=== PATIENT | female | born 1950 | race Caucasian/White ===

== ENCOUNTER → 2019-09-01 14:18 | Outpatient (CLI) | payer MEDICARE, SELFPAY ==
--- NOTE | ~2019-09-01 | XR_ITS ---
XR foot LT min 3V DATE: 09/01/2019 14:52 INDICATION: Injury one month ago, persistent pain left foot TECHNIQUE: 4 views COMPARISON: 08/01/2019 left foot FINDINGS: There is osteoarthritis at the first metatarsophalangeal and multiple interphalangeal joint s. Mild R calcaneal enthesopathy. No fracture or dislocation, periosteal reaction or bone destruction. No erosive change. IMPRESSION: Plantar calcaneal enthesopathy Polyarticular osteoarthritis Reviewed, dictated and finalized at location B. THERAPIST
== END ==
PROVIDERS: PCP Physician Assistant; Visit Provider Physician Assistant
DX: M71.22 Synovial cyst of popliteal space [Baker], left knee (principal); M19.072 Primary osteoarthritis, left ankle and foot
CPT/HCPCS: 73630

== ENCOUNTER → 2019-09-06 07:16 | Outpatient (CLI) | payer MEDICARE, SELFPAY ==
--- NOTE | ~2019-09-06 | MR_ITS ---
EXAMINATION: MR foot LT wo con DATE: 09/06/2019 08:09 INDICATION: Pain at the dorsal left forefoot. TECHNIQUE: Magnetic resonance imaging (MRI) of the left fore/mid foot was performed without intraveno us contrast. Sequences included sagittal T1-weighted FSE, sagittal fluid sensitive FSE STIR, coronal PD-weighted FS FSE, coronal T1-weighted FSE, axial PD-weighted FS FSE, and axial PD-weighted FSE. COMPARISON: Left foot radiographs dated 09/01/2019 FINDINGS: Prominent marrow edema throughout the third metatarsal surrounding a nondisplaced transverse fracture across the proximal metadiaphyseal region of the left second metatarsal. There is periosteal reactio n along the medial side of the diaphysis and small amount of callus formation at the dorsal and later al margins of the fracture. Alignment remains essentially anatomic. No other fractures identified. Mi ld to moderate osteoarthritis at the first metatarsophalangeal joint with mild subarticular edema yash primo along the articulation with the lateral sesamoid. Additional mild osteoarthritis at some of th e interphalangeal joints as well as the tarsal metatarsal joints with additional mild subarticular ed berenice at the third, fourth and fifth tarsal metatarsal joints. Flexor and extensor tendons are normal. Lisfranc ligament and collateral ligament complex at the metatarsophalangeal and interphalangeal join ts are normal. There is edema in the soft tissues surrounding the second metatarsal. The intrinsic mu sculature is otherwise unremarkable. No joint effusions. IMPRESSION: 1. Healing nondisplaced transverse fracture at the proximal metadiaphysis of the second metatarsal. Reviewed, dictated and finalized at location A. K FITTER IMPRESSION: 1. Healing nondisplaced transverse fracture at the proximal metadiaphysis of th e second metatarsal.
== END ==
PROVIDERS: PCP Family Medicine; Visit Provider Family Medicine
DX: S92.325D Nondisplaced fracture of second metatarsal bone, left foot, subsequent encounter for fracture with routine healing (principal); X58.XXXD Exposure to other specified factors, subsequent encounter
CPT/HCPCS: 73718

== ENCOUNTER 2020-04-21 01:08 | Outpatient (CLI) | payer MEDICARE, SELFPAY ==
[2020-04-21 17:48] LABS: SARS-CoV-2 RNA PCR Negative
== END 2020-04-21 01:09 | disposition home or self-care (01) ==
LOC: ANHCOVIDDT 01:08
PROVIDERS: PCP Family Medicine; Visit Provider Internal Medicine Gastroenterology
DX: Z01.812 Encounter for preprocedural laboratory examination (principal); Z20.828 Contact with and (suspected) exposure to other viral communicable diseases
CPT/HCPCS: 87635; C9803; U0003

== ENCOUNTER 2020-04-24 02:14 | Day surgery (SDC) | payer MEDICARE, SELFPAY ==
[2020-04-18 12:19] VITALS: BMI 26.5
[2020-04-24 11:20] VITALS: BP 138/82; PULSE 78; RESP 18; TEMP 37; O2SAT 99; BMI 26.9
[2020-04-24] MEDS: LACTATED RINGERS 1,000 ML 150 ML IV CONT (11:33)
--- NOTE | 2020-04-24 12:07 | WPDHPUPDATE1 ---
History and Physical Update Update Date/Time: 04/24/20 12:07 History and Physical has been reviewed, including an updated exam of the patient. There are NO changes in the patient's condition. Risks, benefits, and alternatives have been discussed and questions answered. Patient agrees to proceed with procedure.
[2020-04-24 12:27] VITALS: BP 109/61; PULSE 72; RESP 16; O2SAT 100
[2020-04-24 12:37] VITALS: BP 136/79; PULSE 67; RESP 20; O2SAT 100
[2020-04-24 12:47] VITALS: BP 151/82; PULSE 67; RESP 20; O2SAT 100
== END 2020-04-24 13:05 | disposition home or self-care (01) ==
PROVIDERS: PCP Family Medicine; Visit Provider Internal Medicine Gastroenterology
PROC: 0DJ08ZZ Inspection of Upper Intestinal Tract, Via Natural or Artificial Opening Endoscopic (ICD-10-PCS; CPT 43235; principal; 2020-04-24 12:15)
DX: K52.9 Noninfective gastroenteritis and colitis, unspecified (principal); K29.50 Unspecified chronic gastritis without bleeding; K51.50 Left sided colitis without complications; K21.9 Gastro-esophageal reflux disease without esophagitis; K22.2 Esophageal obstruction; K21.0 Gastro-esophageal reflux disease with esophagitis; K44.9 Diaphragmatic hernia without obstruction or gangrene
CPT/HCPCS: 43239; 43249; 88305; C1726; J2704; J7120

== ENCOUNTER → 2020-07-30 09:00 | Outpatient (CLI) | payer MEDICARE, SELFPAY ==
--- NOTE | ~2020-07-30 | MR_ITS ---
EXAMINATION: MR brain/brain stem wo con DATE: 07/30/2020 09:38 INDICATION: Unspecified dementia without behavioral disturbance. Left-sided headache. TECHNIQUE: Magnetic resonance imaging (MRI) of the brain and brainstem was performed without intraven ous contrast. Sequences included sagittal and axial T1-weighted FSE, axial diffusion-weighted FS EPI, axial T2*-weighted GRE, axial T2-weighted FLAIR Propeller, and axial T2-weighted Propeller. Apparent diffusion coefficient (ADC) maps were created. COMPARISON: None. FINDINGS: There is no intracranial hemorrhage, acute infarction, or abnormal intracranial mass lesion . There are scattered areas of nonspecific increased T2-weighted signal intensity in the cerebral whi te matter and jorge, which is within normal limits for the patient's age. The ventricles are normal in size. The paranasal sinuses are clear. The orbits are normal. The mastoid air cells are normal. IMPRESSION: 1. Normal aging brain. Reviewed, dictated and finalized at location A. T COMBINING OPERATOR IMPRESSION: 1. Normal aging brain.
--- NOTE | ~2020-07-30 | XR_ITS ---
EXAMINATION: XR chest 2V 07/30/2020 09:58 INDICATION: Dementia. Dyspnea. PROCEDURE: 2 view chest COMPARISON: 10/15/2018 FINDINGS: The lungs are clear. The cardiomediastinal silhouette is within normal limits. There are no pleural effusions. There is no pneumothorax suspected. IMPRESSION: 1: NO ACUTE CARDIOPULMONARY DISEASE. Reviewed, dictated and finalized at location A. COPY EDITOR
== END ==
PROVIDERS: PCP Family Medicine; Visit Provider Physician Assistant Medical
DX: F03.90 Unspecified dementia, unspecified severity, without behavioral disturbance, psychotic disturbance, mood disturbance, and anxiety (principal)
CPT/HCPCS: 70551; 71046

== ENCOUNTER → 2020-08-14 14:52 | Outpatient (CLI) | payer MEDICARE, SELFPAY ==
--- NOTE | ~2020-08-14 | MM_ITS ---
EXAMINATION: MM screening kalen BI w ausncion HISTORY: Screening mammogram TECHNIQUE: Craniocaudal and mediolateral oblique 3-D tomosynthesis images were obtained and synthetic 2-D images were generated. CAD analysis was submitted and interpreted. COMPARISON: 12/10/2018, 08/20/2017, 06/10/2016 bilateral digital mammogram examinations BREAST PARENCHYMAL COMPOSITION: There are scattered areas of fibroglandular density. FINDINGS: Stable mild fibroglandular asymmetry and small stable circumscribed low-density opacities o f the breast. Benign occasional bilateral calcifications are noted There is no evidence of suspicious mass, calcification, or architectural distortion to suggest malignancy in either breast. There has b een no suspicious interval change. IMPRESSION: 1. No mammographic evidence of malignancy. 2. Recommend routine screening mammography in one year. BI-RADS Category 2: Benign finding(s). Reviewed, dictated and finalized at location A. AND BEVERAGE ASSISTANT
== END ==
PROVIDERS: PCP Family Medicine; Visit Provider Physician Assistant Medical
DX: Z12.31 Encounter for screening mammogram for malignant neoplasm of breast (principal)
CPT/HCPCS: 77063; 77067

== ENCOUNTER → 2020-11-03 01:03 | Outpatient (CLI) | payer MEDICARE, SELFPAY ==
[2020-11-03 18:52] LABS: SARS-CoV-2 RNA PCR Negative
== END ==
PROVIDERS: PCP Family Medicine; Visit Provider Internal Medicine Gastroenterology
DX: Z01.812 Encounter for preprocedural laboratory examination (principal); Z20.822 Contact with and (suspected) exposure to COVID-19
CPT/HCPCS: C9803; U0003; U0005

== ENCOUNTER 2020-11-06 01:32 | Day surgery (SDC) | payer MEDICARE, SELFPAY ==
[2020-10-31 10:39] VITALS: BMI 25.7
[2020-11-06 07:51] VITALS: BP 127/69; PULSE 68; RESP 18; TEMP 36.4; O2SAT 99; BMI 26.3
[2020-11-06] MEDS: LACTATED RINGERS 1,000 ML 150 ML IV CONT (07:59)
--- NOTE | 2020-11-06 08:33 | WPDANESEPPF ---
Anes - Initial Pre Proc Eval Procedure: Operation Date: 11/06/20 09:00 Proposed Procedures p Esophagogastroduodenoscopy - David Hankins MD Date/Time: 11/06/20 08:33 Surgeon: David Hankins MD Pre Op Diagnosis: Esophagitis Patient Data Age: 70 Gender: F Height: 5 ft 3 in Weight: 67.5 kg Last Vital Signs Temp 97.6 F 11/06/20 07:51 Pulse 68 11/06/20 07:51 Resp 18 11/06/20 07:51 BP 127/69 11/06/20 07:51 Pulse Ox 99 11/06/20 07:51 Allergies Allergy/AdvReac Type Severity Reaction Status Date / Time sulfadiazine Allergy Unknown Skin Verified 11/06/20 07:50 Reaction Home Medications Medication Instructions Recorded Confirmed Type albuterol sulfate 90 mcg/actuation 1 inhalation INHALATION Q4H PRN 06/28/19 10/31/20 History aerosol inhaler fluticasone furoate 200 1 inhalation INHALATION Q24H #60 09/28/19 10/31/20 Rx mcg-vilanterol 25 mcg/dose each inhalation powder levothyroxine 75 mcg tablet 75 mcg PO DAILY #90 tablet 02/14/20 10/31/20 Rx azathioprine 50 mg tablet 25 mg PO DAILY #90 tablet 08/07/20 10/31/20 Rx atorvastatin 10 mg PO HS 10/31/20 10/31/20 History calcium carbonate-vitamin D3 2 tablet PO DAILY 10/31/20 10/31/20 History [Calcium 500 + D (D3)] esomeprazole magnesium 20 mg PO DAILY 10/31/20 10/31/20 History fluoxetine 10 mg PO DAILY 10/31/20 10/31/20 History rmmklbpcqrnn-Iz-dtwa-minerals 1 tablet PO DAILY 10/31/20 10/31/20 History [Multiple Vitamin, Womens] Patient hx anesthesia problems: none Family hx anesthesia problems: none PMFSH Past Medical History Medical History Abnormal findings on esophagogastroduodenoscopy (EGD) 04.24.20 esophageal ring/ dilated Acute asthmatic bronchitis Bronchospasm Foot fracture, left GERD (gastroesophageal reflux disease) egd 9.29.20 : dx: esophageal ring/ dilated Grief reaction with prolonged bereavement Left sided colitis Mammogram normal Nicotine dependence, unspecified, in remission Patellofemoral arthralgia of both knees Scoliosis Ulcerative colitis, unspecified, without complications Verrucous keratosis Surgical History Surgical History H/O: hysterectomy History of colonoscopy History of suburethral sling procedure (~2009) History of tubal ligation (~1976) Family History Family History Mother Hypertension Heart disease Father Family history of cardiovascular disease Heart disease Other Breast cancer Lung cancer Other Family history of malignant neoplasm of breast Family history of ulcerative colitis Social History Social History Smoking packs per day: 0.5 Smoking cigarettes per day: 10.0 Years smoked: 15 Smoking pack-years: 7.50 Smoking status: Former smoker Tobacco type: cigarettes Alcohol intake: current Substance use: never Substance use type: does not use Living arrangements: alone Gender identity (if verbalized by the patient): Female Spiritual care concerns: No Anes - Eval Final PreProcedure Day of Procedure 11/06/20 08:33 Patient weight: normal Heart: regular rate and rhythm Airway: Mallampati scale class II Neurological: alert and oriented Last oral intake: >/= 8 hours ASA classification: III Emergent: no Anesthetic plan: proceed Anesthesia type and monitoring: general GIVS and standard monitoring Informed Consent: The patient's anesthetic plan and its attendant risks and benefits were discussed with the patient/family/POA. Questions were solicited and answers provided to the satisfaction of the patient/family/POA.
--- NOTE | 2020-11-06 08:50 | PM.HPGS ---
History of Present Illness History of Present Illness Consent: Risks, benefits, and alternatives have been discussed and questions answered. Patient agrees to proceed with procedure. Chief complaint: Esophagitis Narrative: Susan Tobias is a 70 year old female GERD with esophagitis but better after keeping using nexium and stop nsaid's Review of Systems Constitutional: Constitutional: Denies headache(s) and Denies weakness Eyes: Eyes: Denies blurry vision ENT: Reports Normal hearing present, Denies headache(s) and Denies neck pain Cardiovascular: Cardiovascular: Denies chest pain and Denies dyspnea Respiratory: Respiratory: Denies dyspnea Gastrointestinal: Gastrointestinal: Reports no additional gastrointestinal complaints Genitourinary: Genitourinary: Denies dysuria Musculoskeletal: Musculoskeletal: Denies neck pain Integumentary/Breasts: Skin/Breast: Denies dry skin Neurologic: Reports Normal hearing present, Denies headache(s) and Denies weakness Psychiatric: Psychiatric: Denies anxiety Endocrine: Endocrine: Denies change in body appearance Hematologic/Lymphatic: Hematologic/Lymphatic: Denies easy bleeding Allergic/Immunologic: Allergic/Immunologic: Denies urticaria PMFSH Past Medical History Medical History Abnormal findings on esophagogastroduodenoscopy (EGD) 04.24.20 esophageal ring/ dilated Acute asthmatic bronchitis Bronchospasm Foot fracture, left GERD (gastroesophageal reflux disease) egd 04.24.20 : dx: esophageal ring/ dilated Grief reaction with prolonged bereavement Left sided colitis Mammogram normal Nicotine dependence, unspecified, in remission Patellofemoral arthralgia of both knees Scoliosis Ulcerative colitis, unspecified, without complications Verrucous keratosis Surgical History Surgical History H/O: hysterectomy History of colonoscopy History of suburethral sling procedure (~2009) History of tubal ligation (~1976) Family History Family History Mother Hypertension Heart disease Father Family history of cardiovascular disease Heart disease Other Breast cancer Lung cancer Other Family history of malignant neoplasm of breast Family history of ulcerative colitis Social History Social History Smoking packs per day: 0.5 Smoking cigarettes per day: 10.0 Years smoked: 15 Smoking pack-years: 7.50 Smoking status: Former smoker Tobacco type: cigarettes Alcohol intake: current Substance use: never Substance use type: does not use Living arrangements: alone Gender identity (if verbalized by the patient): Female Spiritual care concerns: No Meds Home Medications and Allergies Home Medications Medication Instructions Recorded Confirmed Type albuterol sulfate 90 mcg/actuation 1 inhalation INHALATION Q4H PRN 06/28/19 10/31/20 History aerosol inhaler fluticasone furoate 200 1 inhalation INHALATION Q24H #60 09/28/19 10/31/20 Rx mcg-vilanterol 25 mcg/dose each inhalation powder levothyroxine 75 mcg tablet 75 mcg PO DAILY #90 tablet 02/14/20 10/31/20 Rx azathioprine 50 mg tablet 25 mg PO DAILY #90 tablet 08/07/20 10/31/20 Rx atorvastatin 10 mg PO HS 10/31/20 10/31/20 History calcium carbonate-vitamin D3 2 tablet PO DAILY 10/31/20 10/31/20 History [Calcium 500 + D (D3)] esomeprazole magnesium 20 mg PO DAILY 10/31/20 10/31/20 History fluoxetine 10 mg PO DAILY 10/31/20 10/31/20 History tgnmspypnlwr-Iq-rjaq-minerals 1 tablet PO DAILY 10/31/20 10/31/20 History [Multiple Vitamin, Womens] Allergies Allergy/AdvReac Type Severity Reaction Status Date / Time sulfadiazine Allergy Unknown Skin Verified 11/06/20 07:50 Reaction Vital Signs Vital Signs - 24 hr 11/06/20 07:51 Temperature 9
[2020-11-06] MEDS: BENZOCAINE (*SP) 60 ML SPRAY CAN (HURRICAINE) 1 SPRAY MUCOUS MEM (08:55)
[2020-11-06 09:03] VITALS: BP 116/64; PULSE 73; RESP 20; O2SAT 97
[2020-11-06 09:13] VITALS: BP 114/67; PULSE 73; RESP 20; O2SAT 99
[2020-11-06 09:23] VITALS: BP 119/70; PULSE 69; RESP 20; O2SAT 100
== END 2020-11-06 09:45 | disposition home or self-care (01) ==
PROVIDERS: PCP Family Medicine; Visit Provider Internal Medicine Gastroenterology
PROC: 0DJ08ZZ Inspection of Upper Intestinal Tract, Via Natural or Artificial Opening Endoscopic (ICD-10-PCS; CPT 43235; principal; 2020-11-06 09:00)
DX: K21.9 Gastro-esophageal reflux disease without esophagitis (principal); K44.9 Diaphragmatic hernia without obstruction or gangrene; J45.909 Unspecified asthma, uncomplicated; Z79.51 Long term (current) use of inhaled steroids; Z87.891 Personal history of nicotine dependence
CPT/HCPCS: 43235; C9803; J2704; J7120; U0003; U0005

== ENCOUNTER → 2020-11-19 15:59 | Outpatient (REF) | payer MEDICARE, SELFPAY | LOC: ANHLAB 15:59 | PROVIDERS: PCP Family Medicine; Visit Provider Nurse Practitioner | DX: C44.319 Basal cell carcinoma of skin of other parts of face (principal) | CPT/HCPCS: 88305; 88342 ==

== ENCOUNTER → 2021-01-07 09:35 | Outpatient (REF) | payer MEDICARE, SELFPAY | LOC: ANHLAB 09:35 | PROVIDERS: PCP Family Medicine; Visit Provider Nurse Practitioner | DX: C44.319 Basal cell carcinoma of skin of other parts of face (principal) | CPT/HCPCS: 88305; 88331 ==

== ENCOUNTER 2021-01-18 16:35 | Outpatient (CLI) | payer MEDICARE, SELFPAY ==
[2021-01-18 17:16] LABS: Hematocrit 39.5 % (37.0-47.0); Hemoglobin 12.8 g/dL (12.0-15.0); Mean Corpuscular HGB Conc 32.4 g/dl (32-36); Mean Corpuscular Hemoglobin 31.1 pg (26-34); Mean Corpuscular Volume 95.9 fl (80-100); Mean Platelet Volume 9.1 fl (7.4-10.4); Platelet Count Result 243 k/mm3 (150-375); Red Blood Count 4.12 M/mm3 (4.2-5.4); Red Cell Distribution Width 14.6 % (11.5-14.5); White Blood Count 7.5 K/mm3 (4.5-10.0)
[2021-01-18 17:48] LABS: Erythrocyte Sedimentation Rate 19 mm/hr (0-20)
[2021-01-18 19:03] LABS: Alanine Aminotransferase 11 U/L (4-35); Albumin Level 4.3 g/dL (3.5-5.1); Alkaline Phosphatase 65 U/L (38-126); Anion Gap 9 mmol/L (8-16); Aspartate Amino Transferase 31 U/L (14-36); Bilirubin,Total 0.4 mg/dL (0.2-1.3); Blood Urea Nitrogen 9 mg/dL (7-17); CRP < 0.5 mg/dL (<1.0); Calcium 9.4 mg/dL (8.4-10.2); Carbon Dioxide 24 mmol/L (22-30); Chloride 106 mmol/L (98-107); Estimated Glomerular Filt Rate > 60; Glucose 105 mg/dL (65-105); Potassium 3.6 mmol/L (3.4-5.0); Sodium 139 mmol/L (137-145)
== END 2021-01-18 16:36 | disposition home or self-care (01) ==
LOC: ANHLAB 16:37
PROVIDERS: PCP Family Medicine; Visit Provider Nurse Practitioner Family
DX: K51.90 Ulcerative colitis, unspecified, without complications (principal); R19.7 Diarrhea, unspecified
CPT/HCPCS: 36415; 80053; 85027; 85652; 86140

== ENCOUNTER 2021-01-19 09:24 | Outpatient (CLI) | payer MEDICARE, SELFPAY | END 2021-01-19 09:25 | disposition home or self-care (01) | PROVIDERS: PCP Family Medicine; Visit Provider Nurse Practitioner Family | DX: K51.90 Ulcerative colitis, unspecified, without complications (principal); R19.7 Diarrhea, unspecified | CPT/HCPCS: 87045; 87046; 87324; 87427 ==

== ENCOUNTER → 2021-06-26 14:18 | Outpatient (CLI) | payer MEDICARE, SELFPAY ==
--- NOTE | ~2021-06-26 | XR_ITS ---
EXAMINATION: XR lumbar spine 2-3V DATE: 06/26/2021 14:37 INDICATION: Strain of muscle, fascia, and tendon of lower back. TECHNIQUE: 3 views of lumbar spine were obtained. COMPARISON: None. FINDINGS: There is 10 degrees levoscoliosis of thoracolumbar spine. There is 5 mm retrolisthesis of L 1 on L2 and 3 mm retrolisthesis of L2 on L3 and L3 on L4. There is 4 mm anterolisthesis of L4 on L5 a nd L5 on S1. There is mild chronic anterior wedging of L1 vertebral body. There is severely decreased disc height at L1-L2, mildly decreased disc height at L2-L3, moderately decreased disc height at L3- L4 and L4-L5, and severely decreased disc height at L5-S1 with endplate remodeling. There is multilev el facet joint osteoarthritis, severe in lower lumbar spine. IMPRESSION: 1. Severe lumbar spondylosis. 2. Thoracolumbar levoscoliosis. Reviewed, dictated and finalized at location A. NG SURVEILLANCE OBSERVER
== END ==
PROVIDERS: PCP Family Medicine; Visit Provider Family Medicine
DX: S39.012A Strain of muscle, fascia and tendon of lower back, initial encounter (principal); M41.9 Scoliosis, unspecified; M47.816 Spondylosis without myelopathy or radiculopathy, lumbar region
CPT/HCPCS: 72100

== ENCOUNTER 2021-08-07 12:30 | Outpatient (RCR) | payer MEDICARE, SELFPAY ==
--- NOTE | 2021-07-12 11:46 | PTOPEVAL ---
PHYSICAL THERAPY EVALUATION Thank you for referring Susan Tobias to [facility].? Susan was evaluated for the dx of low back pain. The patient is scheduled to be seen for therapy?2 x/week for 4 weeks. Please review, sign, date and return this plan of care SCOTT. I agree with and certify that the following plan of care is medically necessary. Referring Physician Date Attending Provider: Pascale Peterson MD *PT Outpatient Evaluation Start: 07/12/21 10:33 Freq: Status: Active Protocol: Document 07/12/21 10:33 [facility] (Rec: 07/12/21 11:19 [facility] [id number]) Therapy Assessment Status Assessment Status Assessment Status Evaluation Evaluation Information Problem Diagnosis spinal OA with new onset weakness Onset 4 months Additional Evaluation Detail Patient noticed that she is having moderate trouble with getting off the floor and putting her leg up to put her sock/shoes on. The patient has a little pain at her low back and more to the left with activity or after shopping. The patient is retired and has her grandkids at times, where she likes to get on the floor with them. Subjective Information The patient's goal is to be Query Text:As Reported By Patient/ able to move around better. Family Diagnostic Tests X-Rays For This Problem Yes: arthritis in spine Previous Treatments Previous Treatments For This Problem none Pain Assessment Timing of Pain Assessment Timing of Pain Assessment Assessment Pain Scale Pain Scale Used Numeric (1 - 10) Self Report Pain Assessment Lower Back Reported Pain Level 0 Pain Description Tightness Pain Frequency Acute Greatest Pain Intensity 7 Pain Aggravating Factors Bending,Exercise/Activity, Walking,Weight Bearing/ Standing Pain Behaviors Guarding,Limping Pain Score Pain Score 0: Self Report Interventions Used Pain Relief Interventions Used By Heat,Inactivity/Rest, Patient Medication,Position Change Other Alleviating Interventions tylenol Cervical and Lumbar ROM Lumbar ROM Lumbar Flexion Active Mid Murphy Query Text:Hands to: Lumbar Extension (0-40) 20 Query Text:Active in Degrees Lumbar Lateral Flexion Right (0-40) 35 Query Text:Active in Degrees
--- NOTE | 2021-08-07 13:14 | PTOPEVAL ---
PHYSICAL THERAPY DISCHARGE NOTE Thank you for referring Susan Tobias to [facility].? Please review, sign, date and return this plan of care SCOTT. I agree with and certify that the following plan of care is medically necessary. Referring Physician Date Attending Provider: Pascale Peterson MD Discharge Diagnosis spinal OA with new onset weakness Onset 4 months Subjective Information States that she feels like she Query Text:As Reported By Patient/ is maybe a little better. The Family pain is still quite consistent but she does feel like she is learning how to get stronger and get on and off the floor better. Also recognizes that stiffness can set in after being in one position for too long. Self Report Pain Assessment Lower Back Reported Pain Level 1 Pain Description Tightness Greatest Pain Intensity 5 Pain Score Pain Score 1: Self Report Interventions Used Interventions Used By Clinicians Exercise Cervical and Lumbar ROM Lumbar ROM Lumbar Flexion Active Mid Murphy Query Text:Hands to: Lumbar Extension (0-40) 20 Query Text:Active in Degrees Lumbar Lateral Flexion Right (0-40) 35 Query Text:Active in Degrees Lumbar Lateral Flexion Left (0-40) 35 Query Text:Active in Degrees Lateral Rotation Right (0-45) 45 Query Text:Active in Degrees Lateral Rotation Left (0-45) 45 Query Text:Active in Degrees Lumbar Comments no pain with rotation today Lower Extremity Muscle Strength Testing General Lower Extremity Strength Reason Not Measured WFL/Left,WFL/Right Gross Lower Extremity Strength hip flexion: 3+/5 knee flexion/extension: 5/5 PT Clinical Summary Mrs. Tobias is a 71 y/o evaluated for the dx of low back pain/OA. She is demonstrating progress toward meeting her goals at this time , especially the goals for strength. She would like to d/ c for now and continue her HEP due to insurance reasons. We will d/c and if she needs us in the future we would be happy to help. PT Services Indicated No Rehabilitation Potential Excellent Potential Barriers to Goal Achievem
== END 2021-08-07 16:56 | disposition home or self-care (01) ==
LOC: ANHPT 12:30
PROVIDERS: PCP Family Medicine; Visit Provider Family Medicine
DX: S39.012D Strain of muscle, fascia and tendon of lower back, subsequent encounter (principal)
CPT/HCPCS: 97014; 97110; 97140; 97162; G0283

== ENCOUNTER → 2021-10-29 14:52 | Outpatient (CLI) | payer MEDICARE, SELFPAY ==
--- NOTE | ~2021-10-29 | MM_ITS ---
EXAMINATION: MM screening [facility] BI w asuncion HISTORY: Screening TECHNIQUE: Craniocaudal and mediolateral oblique 3-D tomosynthesis images were obtained and synthetic 2-D images were generated. CAD analysis was submitted and interpreted. COMPARISON: Comparison to multiple prior studies sequentially, with oldest reviewed study dated 11/2014. BREAST PARENCHYMAL COMPOSITION: There are scattered areas of fibroglandular density. FINDINGS: There is a developing cluster of right breast nodules centered in the upper outer quadrant. The left breast is stable without evidence for malignancy. IMPRESSION: 1. Developing clustered right breast nodules, upper outer quadrant. 2. Additional mammographic views and possible breast ultrasound are recommended. BI-RADS Category 0: Incomplete: Needs additional imaging evaluation. Reviewed, dictated and finalized at location A. IMPRESSION: 1. Developing clustered right breast nodules, upper outer quadrant. 2. Additional mammographic views and possible breast ultrasound are recommended . BI-RADS Category 0: Incomplete: Needs additional imaging evaluation.
== END ==
PROVIDERS: PCP Family Medicine; Visit Provider Physician Assistant Medical
DX: Z12.31 Encounter for screening mammogram for malignant neoplasm of breast (principal); R92.8 Other abnormal and inconclusive findings on diagnostic imaging of breast
CPT/HCPCS: 77063; 77067

== ENCOUNTER 2021-11-08 12:43 | Outpatient (CLI) | payer MEDICARE, SELFPAY ==
--- NOTE | ~2021-11-08 | MMUS_ITS ---
EXAMINATION: MM diagnostic kalen RT w asuncion, US breast RT limited HISTORY: Follow-up right breast masses TECHNIQUE: Additional 3-D tomosynthesis images of the right breast were performed and synthetic 2-D i mages were generated. CAD analysis was submitted and interpreted. High resolution Limited right breas t ultrasound was performed. COMPARISON: Comparison to multiple prior studies sequentially, with oldest reviewed study dated 11/2014. BREAST PARENCHYMAL COMPOSITION: Breast composed of scattered areas of fibroglandular density FINDINGS: MAMMOGRAPHIC FINDINGS: There are multiple masses in the upper outer quadrant of the right breast with central lucency, likel y benign intramammary lymph nodes. Some of these appear slightly larger than on prior examinations. ULTRASOUND: Limited right breast ultrasound: No discrete solid or cystic mass identified. Mildly prominent duct n oted at 10:00. IMPRESSION: 1. Probable benign right breast masses in the upper outer quadrant without definite sonographic corre late. 2. Recommend 6 month follow-up diagnostic right mammogram BI-RADS category 3, probably benign findings. Reviewed, dictated and finalized at location A. IMPRESSION: 1. Probable benign right breast masses in the upper outer quadrant without defi nite sonographic correlate. 2. Recommend 6 month follow-up diagnostic right mammogram BI-RADS category 3, probably benign findings.
== END 2021-11-08 12:44 | disposition home or self-care (01) ==
LOC: ANHIMG 12:44
PROVIDERS: PCP Family Medicine; Visit Provider Physician Assistant
DX: R92.8 Other abnormal and inconclusive findings on diagnostic imaging of breast (principal)
CPT/HCPCS: 76642; 77061; 77065; G0279

== ENCOUNTER → 2021-12-18 08:16 | Outpatient (CLI) | payer MEDICARE, SELFPAY ==
--- NOTE | ~2021-12-18 | DEXA_ITS ---
Bone Density Report Name: CEDRICK CROUCH Age: 71 Sex: Female Ethnicity: White Date of : 1950 Indication: osteopenia; parental hip fracture; height loss; hysterectomy; postmenopausal Referring Provider: ISIS, KENNA Mckeon Study: Bone densitometry was performed. Exam Date: December 18, 2021 Accession number: [id number] Bone Density: Region BMD T-score Z-score Classification AP Spine (L3, L4) 0.990 -1.0 1.3 Normal Femoral Neck (Left) 0.679 -1.5 0.4 Osteopenia Total Hip (Left) 0.729 -1.7 -0.2 Osteopenia Femoral Neck (Right) 0.685 -1.5 0.4 Osteopenia Total Hip (Right) 0.752 -1.6 0.0 Osteopenia Total Hip Mean 0.741 -1.7 -0.1 Osteopenia World Health Organization criteria for BMD impression classify patients as: Normal (T-score at or above -1.0), Osteopenia (T-score between -1.0 and -2.5), or Osteoporosis (T-score at or below -2.5). 10-year Fracture Risk(1): Major Osteoporotic Fracture 16% Hip Fracture 4.3% Reported Risk Factors: [place] (), Neck BMD=0.679, BMI=29.0, parental fracture (1) FRAX(R) Version 3.08. Fracture probability calculated for an untreated patient. Fracture probability may be lower if the patient has received treatment. Previous Exams: Region Exam Age BMD T-score BMD Change BMD Change Date g/cm2 vs Baseline vs Previous AP Spine(L3, L4) 12/18/2021 71 0.990 -1.0 0.114* 0.030* 12/10/2018 68 0.960 -1.3 0.083* 0.032* 06/10/2016 66 0.928 -1.6 0.052* 0.065* 05/02/2014 64 0.864 -2.2 -0.013 -0.018 09/03/2011 61 0.881 -2.0 0.005 -0.019 05/09/2009 59 0.901 -1.8 0.024* 0.086* 03/29/2008 57 0.814 -2.6 -0.062* -0.062* 09/16/2004 54 0.877 -2.0 Total Hip(Left) 12/18/2021 71 0.729 -1.7 -0.109* -0.021 12/10/2018 68 0.750 -1.6 -0.088* 0.023 06/10/2016 66 0.727 -1.8 -0.111* 0.002 05/02/2014 64 0.726 -1.8 -0.113* 0.012 09/03/2011 61 0.714 -1.9 -0.124* -0.006 05/09/2009 59 0.719 -1.8 -0.119* 0.046* 03/29/2008 57 0.673 -2.2 -0.165* -0.165* 09/16/2004 54 0.838 -0.9 Total Hip(Right) 12/18/2021 71 0.752 -1.6 -0.077* 0.014 12/10/2018 68 0.738 -1.7 -0.091* -0.008 06/10/2016 66 0.746 -1.6 -0.083* 0.023 05/02/2014 64 0.723 -1.8 -0.106* 0.040* 09/03/2011 61 0.683 -2.1 -0.146* -0.006 05/09/2009 59 0.690 -2.1 -
== END ==
PROVIDERS: PCP Family Medicine; Visit Provider Physician Assistant Medical
DX: Z78.0 Asymptomatic menopausal state (principal); M85.851 Other specified disorders of bone density and structure, right thigh; M85.852 Other specified disorders of bone density and structure, left thigh
CPT/HCPCS: 77080

== ENCOUNTER → 2022-03-14 08:36 | Outpatient (CLI) | payer MEDICARE, SELFPAY ==
--- NOTE | ~2022-03-14 | XR_ITS ---
EXAMINATION: [id number] INDICATION: Right foot pain TECHNIQUE: Three views of the right foot are obtained. COMPARISON: None available FINDINGS: There is no fracture. There is moderate osteoarthritis at the first metatarsophalangeal ruma nt and in multiple interphalangeal joints. The soft tissues are unremarkable. A plantar calcaneal ent hesophyte is noted. There is mild osteoarthritis of the hindfoot. IMPRESSION: 1. Polyarticular osteoarthritis without acute osseous abnormality. Reviewed, dictated and finalized at location A.
== END ==
PROVIDERS: PCP Family Medicine; Visit Provider Family Medicine
DX: M79.671 Pain in right foot (principal); M19.071 Primary osteoarthritis, right ankle and foot
CPT/HCPCS: 73630

== ENCOUNTER → 2022-05-28 09:44 | Outpatient (CLI) | payer MEDICARE, SELFPAY ==
--- NOTE | ~2022-05-28 | MMUS_ITS ---
EXAMINATION: MM diagnostic kalen RT w asuncion, US breast RT limited HISTORY: Follow-up right breast asymmetries TECHNIQUE: Additional 3-D tomosynthesis images of the right breast were performed and synthetic 2-D i mages were generated. CAD analysis was submitted and interpreted. High resolution Limited right breas t ultrasound was performed. COMPARISON: Comparison to multiple prior studies sequentially, with oldest reviewed study dated 05/27. BREAST PARENCHYMAL COMPOSITION: Breast composed of scattered areas of fibroglandular density FINDINGS: MAMMOGRAPHIC FINDINGS: There are persistent nodular asymmetries in the superior aspect of the right breast, without signific ant change. No suspicious calcifications or architectural distortion. ULTRASOUND: Limited right breast ultrasound: At 2:00, 3 cm from the nipple there is a 3 mm hypoechoic mass, likel y complicated cysts. At 1:00, 1 cm from the nipple, there is a 3 mm cyst. At 12:00, 2 cm from the nip ple, there is a 3 mm complicated cyst. At 12:00, 2 cm from the nipple, there is a 4 mm cyst. At 10:00 , 5 cm from the nipple, there is an intramammary lymph node measuring 5 mm. IMPRESSION: 1. Probable benign findings of the right breast. 2. Recommend 6 month follow-up diagnostic bilateral mammogram and Limited right breast ultrasound BI-RADS category 3, probably benign findings. Reviewed, dictated and finalized at location A. IMPRESSION: 1. Probable benign findings of the right breast. 2. Recommend 6 month follow-up diagnostic bilateral mammogram and Limited right breast ultrasound BI-RADS category 3, probably benign findings.
== END ==
PROVIDERS: PCP Family Medicine; Visit Provider Physician Assistant
DX: R92.8 Other abnormal and inconclusive findings on diagnostic imaging of breast (principal)
CPT/HCPCS: 76642; 77061; 77065; G0279

== ENCOUNTER → 2022-08-05 10:50 | Outpatient (CLI) | payer MEDICARE, SELFPAY ==
--- NOTE | ~2022-08-05 | XR_ITS ---
EXAMINATION: XR foot LT min 3V DATE: 08/05/2022 11:18 INDICATION: 2 weeks of left heel pain TECHNIQUE: Dorsoplantar, two oblique and lateral views of the left foot were obtained. COMPARISON: Left foot MRI dated 09/06/2019 FINDINGS: Bone alignment is normal. Subtle old healed fracture deformity at the base of the second metatarsal. No acute fracture. Polyarticular osteoarthritis, severe at the second, third and fourth distal interp halangeal joints, moderate severity at the third and fourth tarsal metatarsal, first metatarsophalang eal, first interphalangeal and second-fourth proximal interphalangeal joints and mild at several of t he remaining joints throughout the left foot. Moderate-sized plantar calcaneal spur. IMPRESSION: 1. Moderate-sized plantar calcaneal spur. No acute osseous abnormality. 2. 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 L ARBITRATOR
== END ==
PROVIDERS: PCP Family Medicine; Visit Provider Physician Assistant
DX: M79.672 Pain in left foot (principal); M77.32 Calcaneal spur, left foot; M19.072 Primary osteoarthritis, left ankle and foot
CPT/HCPCS: 73630

== ENCOUNTER → 2022-12-24 09:45 | Outpatient (CLI) | payer MEDICARE, SELFPAY ==
--- NOTE | ~2022-12-24 | MMUS_ITS ---
EXAMINATION: MM diagnostic kalen BI w asuncion, US breast RT complete HISTORY: Six-month follow-up of probable benign imaging findings of the right breast from 05/28/2022 d iagnostic right mammogram and limited right breast ultrasound examination TECHNIQUE: Bilateral full field and right spot ML, MLO and CC 3-D tomosynthesis images were performed and synthetic 2-D images were generated. CAD analysis was submitted and interpreted. High resolution complete right breast ultrasound examination including all 4 quadrants and subareolar area was perfo rmed. COMPARISON: 06/05/2022 diagnostic right mammogram and limited right breast ultrasound 11/08/2021 diagnostic right mammogram and limited right breast ultrasound /11/2021, 08/14/2020 bilateral screening mammogram examinations BREAST PARENCHYMAL COMPOSITION: There are scattered areas of fibroglandular density. FINDINGS: MAMMOGRAPHIC FINDINGS: There is mildly nodular fibroglandular stroma. No suspicious mass, architectural distortion, malignan t calcification, skin thickening or retraction or significant new or developing density of either sushil ast is noted since 10/29/2021. Limited bilateral benign calcifications. ULTRASOUND: 12:00 2 cm from nipple: Rounded circumscribed approximately 3 mm sonolucency without internal vascula rity or posterior shadowing, likely a benign cyst 12:00 2 cm from nipple: 3.7 x 5 mm sonolucency with through transmission posterior enhancement, consi stent with simple cyst 1:00 1 cm from nipple: 1.5 x 6 mm parallel circumscribed sonolucency consistent with cyst 1:00 1 cm from nipple: Parallel circumscribed hypoechoic 1.8 x 2.5 x 3.2 mm lesion without internal v ascularity or posterior shadowing, likely benign 2:00 3 cm from nipple: 2.6 x 2.1 x 2 mm circumscribed hypoechoic lesion without internal vascularity or posterior shadowing, likely benign 5:00 1 cm from nipple: Approximately 2 rounded circumscribed hypoechoic lesion without internal vascu larity or posterior shadowing IMPRESSION: 1. Benign findings 2. Routine annual mammographic screening is recommended BI-RADS Category 2: Benign finding(s). Reviewed, dictated and finalized at location A. IMPRESSION: 1. Benign findings 2. Routine annual mammographic screening is recommended BI-RADS Category 2: Benign finding(s).
== END ==
PROVIDERS: PCP Family Medicine; Visit Provider Family Medicine
DX: R92.8 Other abnormal and inconclusive findings on diagnostic imaging of breast (principal)
CPT/HCPCS: 76641; 77062; 77066; G0279

== ENCOUNTER 2023-06-08 06:37 | Day surgery (SDC) | payer MEDICARE, SELFPAY ==
[2023-05-11 13:33] VITALS: BMI 29.0
[2023-05-25 10:16] VITALS: BMI 28.2
[2023-06-08 07:45] VITALS: BP 115/81; PULSE 73; RESP 16; TEMP 37.3; O2SAT 98
[2023-06-08] MEDS: LACTATED RINGERS 1,000 ML 150 ML IV CONT (07:45)
--- NOTE | 2023-06-08 08:14 | WPDANESEPPF ---
Anes - Initial Pre Proc Eval Procedure: Operation Date: 06/08/23 09:00 Proposed Procedures p Diagnostic Colonoscopy - David Hankins MD Date/Time: 06/08/23 08:14 Surgeon: David Hankins MD Pre Op Diagnosis: K51.50 Left sided colitis without complications Patient Data Age: 73 Gender: F Height: 1.57 m Weight: 69 kg Last Vital Signs Temp 37.3 C 06/08/23 07:45 Pulse 73 06/08/23 07:45 Resp 16 06/08/23 07:45 BP 115/81 06/08/23 07:45 Pulse Ox 98 06/08/23 07:45 O2 Del Method Room Air 06/08/23 07:45 Allergies Allergy/AdvReac Type Severity Reaction Status Date / Time sulfadiazine Allergy Unknown Skin Verified 06/08/23 07:46 Reaction Home Medications Medication Instructions Recorded Confirmed Type calcium carbonate 500 mg-vitamin 2 tablet PO DAILY 10/31/20 06/08/23 History D3 3.125 mcg (125 unit) tablet esomeprazole magnesium 20 mg 20 mg PO DAILY 10/31/20 06/08/23 History capsule,delayed release sxdqrrucehaz-Oc-yskq-minerals 1 tablet PO DAILY 10/31/20 06/08/23 History (Multiple Vitamin, Womens tablet) albuterol sulfate 90 mcg/actuation 1 inh inhalation Q4H PRN Shortness 10/07/21 06/08/23 Rx aerosol inhaler Of Breath Or Wheezing #6.7 grams fluoxetine 10 mg capsule See Rx Instructions .Route 05/20/22 06/08/23 Rx .COMPLEX #180 caps 1 pair of Orthotic shoes for #1 ea 08/19/22 06/01/23 Rx plantar fasciitis azathioprine 50 mg tablet See Rx Instructions .Route 10/06/22 06/08/23 Rx .COMPLEX #50 tabs gabapentin 300 mg capsule 300 mg PO BID #180 caps 12/08/22 06/08/23 Rx atorvastatin 10 mg tablet See Rx Instructions .Route 01/05/23 06/08/23 Rx .COMPLEX #90 tabs levothyroxine 75 mcg tablet See Rx Instructions .Route 03/25/23 06/08/23 Rx .COMPLEX #100 tabs meloxicam 7.5 mg tablet 7.5 mg PO DAILY #90 tabs 04/15/23 06/08/23 Rx Patient hx anesthesia problems: none Family hx anesthesia problems: none Results Review: All pre-operative results and documents have been reviewed as part of the pre-operative evaluation. [facility] Past Medical History Medical History Abnormal findings on esophagogastroduodenoscopy (EGD) 04.24.20 esophageal ring/ dilated Actinic keratosis left cheek of face 4mm Acute asthmatic bronchitis BCC (basal cell carcinoma), face Bloating Bronchospasm Foot fracture, left GERD (gastroesophageal reflux disease) egd 04.24.20 : dx: esophageal ring/ dilated Grief reaction with prolonged bereavement Left sided colitis Lumbosacral strain Mammogram normal Nicotine dependence, unspecified, in remission Patellofemoral arthralgia of both knees Scoliosis Skin neoplasm Small intestinal bacterial overgrowth (SIBO) Ulcerative colitis, unspecified, without complications Verrucous keratosis Surgical History Surgical History H/O: hysterectomy History of colonoscopy History of suburethral sling procedure (~2009) History of tubal ligation (~1976) Family History Family History Mother Hypertension Heart disease Father Family history of cardiovascular disease Heart disease Other Breast cancer Lung cancer Other Family history of malignant neoplasm of breast Family history of ulcerative colitis Social History Social History Social History: Caffeine- coffee Smoking packs per day: 0.5 Smoking cigarettes per day: 10.0 Years smoked: 15 Smoking pack-years: 7.50 Smoking status: Former smoker Tobacco type: cigarettes Alcohol intake: current Drinks per week: 5 Alcohol use details: wine weekly Substance use: never Substance use type: does not use Lack of Transportation: No Lack of Food: Never True Current Housing: I Have Housing Concerned About Future Housing: N
--- NOTE | 2023-06-08 08:32 | PM.HPGS ---
History of Present Illness History of Present Illness Consent: Risks, benefits, and alternatives have been discussed and questions answered. Patient agrees to proceed with procedure. Chief complaint: K51.50 Left sided colitis without complications Narrative: Susan Tobias is a 73 year old female diagnosed with left sided UC 1998 when she presented with LGIB, diarrhea that required blood transfusion, years ago on steroids, asacol and eventually with remicade for almost 5 years however discontinued ~ 2013, now only on imuran 25 mg daily. Her last colonoscopy 08/2018 showed disease on remission with only few pseudopolyps, extending left side of colon, biopsies showed mild colitis Review of Systems Constitutional: Constitutional: Denies headache(s) and Denies weakness Eyes: Eyes: Denies blurry vision ENT: Reports Normal hearing present, Denies headache(s) and Denies neck pain Cardiovascular: Cardiovascular: Denies chest pain and Denies dyspnea Respiratory: Respiratory: Denies dyspnea Gastrointestinal: Gastrointestinal: Reports no additional gastrointestinal complaints Genitourinary: Genitourinary: Denies dysuria Musculoskeletal: Musculoskeletal: Denies neck pain Integumentary/Breasts: Skin/Breast: Denies dry skin Neurologic: Reports Normal hearing present, Denies headache(s) and Denies weakness Psychiatric: Psychiatric: Denies anxiety Endocrine: Endocrine: Denies change in body appearance Hematologic/Lymphatic: Hematologic/Lymphatic: Denies easy bleeding Allergic/Immunologic: Allergic/Immunologic: Denies urticaria PMFSH Past Medical History Medical History Abnormal findings on esophagogastroduodenoscopy (EGD) 04.24.20 esophageal ring/ dilated Actinic keratosis left cheek of face 4mm Acute asthmatic bronchitis BCC (basal cell carcinoma), face Bloating Bronchospasm Foot fracture, left GERD (gastroesophageal reflux disease) egd 04.24.20 : dx: esophageal ring/ dilated Grief reaction with prolonged bereavement Left sided colitis Lumbosacral strain Mammogram normal Nicotine dependence, unspecified, in remission Patellofemoral arthralgia of both knees Scoliosis Skin neoplasm Small intestinal bacterial overgrowth (SIBO) Ulcerative colitis, unspecified, without complications Verrucous keratosis Surgical History Surgical History H/O: hysterectomy History of colonoscopy History of suburethral sling procedure (~2009) History of tubal ligation (~1976) Family History Family History Mother Hypertension Heart disease Father Family history of cardiovascular disease Heart disease Other Breast cancer Lung cancer Other Family history of malignant neoplasm of breast Family history of ulcerative colitis Social History Social History Social History: Caffeine- coffee Smoking packs per day: 0.5 Smoking cigarettes per day: 10.0 Years smoked: 15 Smoking pack-years: 7.50 Smoking status: Former smoker Tobacco type: cigarettes Alcohol intake: current Drinks per week: 5 Alcohol use details: wine weekly Substance use: never Substance use type: does not use Lack of Transportation: No Lack of Food: Never True Current Housing: I Have Housing Concerned About Future Housing: No Difficulty Paying Gas/Electric Bills: No Difficulty Paying for Meds: No Currently Unemployed: No Difficulty w/ Childcare or Family Care: No Living arrangements: alone Gender identity (if verbalized by the patient): Female Spiritual care concerns: No Meds Home Medications and Allergies Home Medications Medication Instructions Recorded Confirmed Type calcium carbonate 500 mg-vitamin 2 tablet PO DAILY 10/31/20 06/08/23 History D3 3.125 mcg (125 unit) tablet
[2023-06-08 08:53] VITALS: BP 103/68; PULSE 66; RESP 16; O2SAT 97
[2023-06-08 09:03] VITALS: BP 112/69; PULSE 70; RESP 18; O2SAT 99
--- NOTE | 2023-06-08 09:05 | WPDANESPN ---
Anes - Prog Note Post-Op Date/Time: 06/08/23 09:05 Cardiovascular status: normal Respiratory status: normal Airway patency: baseline Mental status: baseline Post-Op hydration status: normal Vital Signs: Last Vital Signs Temp 37.3 C 06/08/23 07:45 Pulse 66 06/08/23 08:53 Resp 16 06/08/23 08:53 BP 103/68 06/08/23 08:53 Pulse Ox 97 06/08/23 08:53 O2 Del Method Room Air 06/08/23 08:53 Pain Score (VAS): 0 I/O: Intake & Output 06/07/23 06/08/23 06/08/23 23:59 07:59 15:59 Intake Total 400 Balance 400 Patient Feedback: Patient satisfied with anesthetic care.
[2023-06-08 09:13] VITALS: BP 121/70; PULSE 71; RESP 18; O2SAT 100
== END 2023-06-08 09:34 | disposition home or self-care (01) ==
PROVIDERS: PCP Family Medicine; Visit Provider Internal Medicine Gastroenterology
PROC: 0DJD8ZZ Inspection of Lower Intestinal Tract, Via Natural or Artificial Opening Endoscopic (ICD-10-PCS; CPT 45378; principal; 2023-06-08 09:00)
DX: K51.90 Ulcerative colitis, unspecified, without complications (principal); D12.4 Benign neoplasm of descending colon; K57.30 Diverticulosis of large intestine without perforation or abscess without bleeding
CPT/HCPCS: 45380

== ENCOUNTER 2023-06-08 09:13 | Outpatient (NON) | payer MEDICARE, SELFPAY | END 2023-06-08 09:14 | disposition home or self-care (01) | PROVIDERS: PCP Family Medicine; Visit Provider Internal Medicine Gastroenterology | DX: K51.50 Left sided colitis without complications (principal) | CPT/HCPCS: 88305 ==

== ENCOUNTER 2023-09-26 10:02 | Observation (INO) | payer MEDICARE, SELFPAY ==
[2023-09-26] VITALS (10 sets, daily range): BP systolic 100–148; BP diastolic 50–85; PULSE 75–96; RESP 16–20; TEMP 36.3–37.5; O2SAT 93–97; BMI 28.0
--- NOTE | ~2023-09-26 | XR_ITS ---
EXAMINATION: XR chest 1V portable DATE: 09/26/2023 10:44 INDICATION: Dizziness. Nausea. Cough. TECHNIQUE: A single frontal view of the chest was obtained. COMPARISON: Chest 2 views 07/30/2020 FINDINGS: There is mild atelectasis in the lower lung zones. No pleural effusion or pneumothorax. The heart size is normal. IMPRESSION: 1. Mild atelectasis in the lower lung zones. Reviewed, dictated and finalized at location A. 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
--- NOTE | ~2023-09-26 | CT_ITS ---
EXAMINATION: CT brain wo con DATE: 09/26/2023 11:54 INDICATION: Vertigo. Confusion. TECHNIQUE: Computed tomography (CT) of the head was performed without intravenous contrast. The mA wa s adjusted according to patient size. Iterative reconstruction technique was employed. The dose-lengt h product was 1059.33 mGy-cm. COMPARISON: None FINDINGS: There is no intracranial hemorrhage, acute infarction, or abnormal intracranial mass lesion . There are scattered areas of low attenuation in the cerebral white matter, which is within normal l imits for the patient's age. The ventricles are normal in size. There is mild mucosal thickening in t he paranasal sinuses. The mastoid air cells are normal. The orbits are normal. IMPRESSION: 1. Normal aging brain. Reviewed, dictated and finalized at location A. ER BRAKE LINING IMPRESSION: 1. Normal aging brain.
--- NOTE | 2023-09-26 10:15 | ECG_ITS ---
Measurements Intervals [place] Rate: 95 P: 70 NE: 144 QRS: 37 QRSD: 81 T: 77 QT: 299 QTc: 377 Interpretive Statements SINUS RHYTHM BORDERLINE R WAVE PROGRESSION, ANTERIOR LEADS NONSPECIFIC ST & T-WAVE ABNORMALITY- ANTEROLAT/HIGH LAT LEADS BASELINE ARTIFACT- I, II, III, AVR, AVL, AVF, V1-V2, V4-V6 BORDERLINE ECG NO PREVIOUS ECG AVAILABLE FOR COMPARISON Electronically Signed On 09-26-2023 16:56:35 BIOLOGICAL CHEMIST by Jason Sullivan D.O.
[2023-09-26 10:40] LABS: Basophils Percent Auto 0.4 % (0.2-1.2); Hematocrit 39.7 % (37.0-47.0); Hemoglobin 12.9 g/dL (12.0-15.0); Immature Granulocyte Absolute 0.04 K/mm3 (0.00-0.031); Immature Granulocyte Percent A 0.5 % (0-0.5); Lymphocytes Absolute Auto 0.38 K/mm3 (0.9-3.2); Lymphocytes Percent Auto 4.8 % (18.3-44.2); Mean Corpuscular HGB Conc 32.5 g/dl (32-36); Mean Corpuscular Hemoglobin 31.2 pg (26-34); Mean Corpuscular Volume 96.1 fl (80-100); Mean Platelet Volume 9.2 fl (7.4-10.4); Monocytes Absolute Auto 1.1 K/mm3 (0.1-0.6); Monocytes Percent Auto 13.8 % (2.6-8.5); Neutrophils Absolute Auto 6.4 K/mm3 (1.3-6.7); Neutrophils Percent Auto 80.5 % (45.5-73.1); Platelet Count Result 188 k/mm3 (150-375); Red Blood Count 4.13 M/mm3 (4.2-5.4); Red Cell Distribution Width 15.4 % (11.5-14.5)
[2023-09-26] MEDS: ONDANSETRON INJ 4 MG/2 ML VIAL IV PUSH (10:43)
--- NOTE | 2023-09-26 11:05 | ED.GENADULT ---
HPI - General Adult General Chief complaint: Dizziness Stated complaint: dizziness Time Seen by Provider: 09/26/23 10:14 History of Present Illness HPI narrative: 73-year-old female presenting to the emergency department for evaluation of increased generalized weakness and intermittent dizziness. Family states that the patient was complaining of increased somnolence yesterday. Patient was complaining of chest congestion and body aches. Patient did sleep or yesterday than usual. Upon arrival to the emergency department patient began complaining of increased dizziness which she described as a movement sensation. Patient denies any prior history of NH denies any prior history of CVA. At time of evaluation patient is alert oriented but family does not feel she is at her normal baseline meaning she seems less sharp than usual. Related Data Home Medications Medication Instructions Recorded Confirmed calcium carbonate 500 mg-vitamin 2 tablet PO DAILY 10/31/20 09/26/23 D3 3.125 mcg (125 unit) tablet qgmfvshkkljo-Pb-umpy-minerals 1 tablet PO DAILY 10/31/20 09/26/23 (Multiple Vitamin, Womens tablet) atorvastatin 10 mg tablet 10 mg PO HS 09/26/23 09/26/23 fluoxetine 10 mg capsule 10 mg PO DAILY 09/26/23 09/26/23 gabapentin 300 mg capsule 300 mg PO DAILY 09/26/23 09/26/23 levothyroxine 75 mcg tablet 75 mcg PO DAILY 09/26/23 09/26/23 lbvoeurr-xff-cvxae1 250 mg-dha 90 1 cap PO DAILY 09/26/23 09/26/23 mg-epa 160 xs-upkg-otbd-zeax capsule (Ocuvite Adult 50 Plus) omeprazole 20 mg tablet,delayed 20 mg PO DAILY 09/26/23 09/26/23 release Allergies Allergy/AdvReac Type Severity Reaction Status Date / Time sulfadiazine Allergy Unknown Skin Verified 09/26/23 10:12 Reaction Review of Systems Review of Systems: All systems reviewed & are unremarkable except as noted in HPI and below PMFSH Past Medical History Medical History (Updated 09/26/23 @ 15:42 by Lissette Sanford APRN) Abnormal findings on esophagogastroduodenoscopy (EGD) 9.29.20 esophageal ring/ dilated Actinic keratosis left cheek of face 4mm Acute asthmatic bronchitis BCC (basal cell carcinoma), face Bloating Bronchospasm Foot fracture, left GERD (gastroesophageal reflux disease) egd 20 : dx: esophageal ring/ dilated Grief reaction with prolonged bereavement Hypothyroid Left sided colitis Lumbosacral strain Mammogram normal Nicotine dependence, unspecified, in remission Patellofemoral arthralgia of both knees Scoliosis Skin neoplasm Small intestinal bacterial overgrowth (SIBO) Ulcerative colitis, unspecified, without complications Verrucous keratosis Surgical History Surgical History H/O: hysterectomy History of colonoscopy History of suburethral sling procedure (~2009) History of tubal ligation (~1976) Family History Family History Mother Hypertension Heart disease Father Family history of cardiovascular disease Heart disease Other Breast cancer Lung cancer Other Family history of malignant neoplasm of breast Family history of ulcerative colitis Social History Social History Social History: Caffeine- coffee Smoking packs per day: 0.5 Smoking cigarettes per day: 10.0 Years smoked: 30 Smoking pack-years: 15.00 Smoking status: Former smoker Tobacco type: cigarettes Alcohol intake: current Drinks per week: 0 Alcohol use details: wine weekly Substance use: never Substance use type: does not use Do You Feel Safe in your Home?: Yes Lack of Transportation: No Lack of Food: Never True Current Housing: I Have Housing Concerned About Future Housing: No Difficulty Paying Gas/Electric Bills: No Difficulty Paying for Meds: No Currently Unemployed: No Education: High School Diploma/GED Difficulty w/ Childcare or F
[2023-09-26 11:10] LABS: Alanine Aminotransferase 14 U/L (6-35); Alkaline Phosphatase 64 U/L (38-126); Anion Gap 7 mmol/L (8-16); Aspartate Amino Transferase 27 U/L (14-36); Bilirubin,Total 0.5 mg/dL (0.2-1.3); Blood Urea Nitrogen 12 mg/dL (7-17); Calcium 8.6 mg/dL (8.4-10.2); Carbon Dioxide 25 mmol/L (22-30); Chloride 103 mmol/L (98-107); Estimated CRCL calculation 57 ml/min; Estimated Glomerular Filt Rate > 60; Glucose 103 mg/dL (65-110); Potassium 3.6 mmol/L (3.4-5.0); Sodium 135 mmol/L (137-145)
[2023-09-26 11:15] LABS: Influenza A QL RT-PCR Positive (Negative); Influenza B QL RT-PCR Negative (Negative); RSV RNA, RT-PCR Negative (Negative); SARS-CoV-2 RNA PCR Negative (Negative)
[2023-09-26] MEDS: SODIUM CHLORIDE 0.9% IV 1,000 ML 999 ML IV CONT (11:21)
[2023-09-26] MEDS: MECLIZINE HCL 25 MG TABLET PO (11:24)
[2023-09-26 12:00] LABS: Appearance Urine Clear (Clear); Bacteria Urine None Seen /hpf; Bilirubin Urine Negative (Negative); Blood Urine 2+ (Negative); Color Urine Dark Yellow (Yellow); Glucose Urine UA Negative (Negative); Ketones Urine 3+ mg/dL (Negative); Leukocyte Esterase Ur Negative LEU/UL (Negative); Nitrate Urine Negative (Negative); Non Pathogenic Casts 0-2; Protein Urine Trace mg/dL (Negative); Specific Grav Ur 1.024 (1.001-1.035); Squamous Epithelial Cell Urine None seen /hpf (Few); WBC Urine 0-5 /hpf
[2023-09-26 12:01] LABS: Add Urine Microscopic? YES
[2023-09-26] MEDS: ACETAMINOPHEN 325 MG TABLET 650 MG PO ×2 (12:31→18:43)
--- NOTE | 2023-09-26 14:59 | PM.IMHP ---
H&P: HPI History of Present Illness Date/Time: 09/26/23 14:59 Chief Complaint: Generalized Weakness, Dizziness, Somnolence Narrative: 73 y/o F presents here for evaluation of generalized weakness, intermittent dizziness, and increased somnolence with PMH asthma, GERD, scoliosis, hypothyroidism, former smoker, and ulcerative colitis. Patient presents here from home for evaluation of generalized weakness, intermittent dizziness, increased somnolence, chest congestion, and body aches. Symptoms began on 09/23. Patient self-reports feeling more confused and described as forgetting words, situations, and general fogginess. Patient will start to describe things and will forget what she was saying midway through explanation. No dysarthria or expressive difficulties. Endorsing intermittent fever and chills. +cough that is producing yellow to green sputum. +mild shortness of breath. Dizziness is intermittent and occurs when patient changes positions. Patient is a former smoker and stopped in 2022. No recent sick contacts in the last 2 weeks. Initial VS at presentation: 99.2 F, HR 71, RR 18, 121/70, and 100% on RA. ED workup showed no leukocytosis, no anemia, creatinine 0.7, no significant electrolyte derangements, and UA not suggestive of UTI. Patient tested positive for Flu A. CXR showed mild atelectasis in the lower lung zones. Head CT showed normal aging brain. Review of Systems Review of Systems: All systems reviewed & are unremarkable except as noted in HPI and below [facility] Past Medical History Medical History (Updated 09/26/23 @ 15:42 by Lissette Sanford, CHASITY) Abnormal findings on esophagogastroduodenoscopy (EGD) 04.24.20 esophageal ring/ dilated Actinic keratosis left cheek of face 4mm Acute asthmatic bronchitis BCC (basal cell carcinoma), face Bloating Bronchospasm Foot fracture, left GERD (gastroesophageal reflux disease) egd 04.24.20 : dx: esophageal ring/ dilated Grief reaction with prolonged bereavement Hypothyroid Left sided colitis Lumbosacral strain Mammogram normal Nicotine dependence, unspecified, in remission Patellofemoral arthralgia of both knees Scoliosis Skin neoplasm Small intestinal bacterial overgrowth (SIBO) Ulcerative colitis, unspecified, without complications Verrucous keratosis Surgical History Surgical History H/O: hysterectomy History of colonoscopy History of suburethral sling procedure (~2009) History of tubal ligation (~1976) Family History Family History Mother Hypertension Heart disease Father Family history of cardiovascular disease Heart disease Other Breast cancer Lung cancer Other Family history of malignant neoplasm of breast Family history of ulcerative colitis Social History Social History Social History: Caffeine- coffee Smoking packs per day: 0.5 Smoking cigarettes per day: 10.0 Years smoked: 30 Smoking pack-years: 15.00 Smoking status: Former smoker Tobacco type: cigarettes Alcohol intake: current Drinks per week: 0 Alcohol use details: wine weekly Substance use: never Substance use type: does not use Do You Feel Safe in your Home?: Yes Lack of Transportation: No Lack of Food: Never True Current Housing: I Have Housing Concerned About Future Housing: No Difficulty Paying Gas/Electric Bills: No Difficulty Paying for Meds: No Currently Unemployed: No Education: High School Diploma/GED Difficulty w/ Childcare or Family Care: No Living arrangements: alone Gender identity (if verbalized by the patient): Female Spiritual care concerns: No Meds Home Medications and Allergies Home Medications Medication Instructions Recorded Confirmed Type calcium carbonate 500 mg-vitamin 2 tablet PO DAILY 10/31/20 09/26/23 History D3 3.125 mcg (12
--- NOTE | 2023-09-26 15:27 | ADMGEN ---
This patient, Susan Tobias, was admitted to [facility] Surg Room 332-01. Patient/family oriented to hospital policies and general routines including ID bracelet, bed and alarms, visiting hours, pain management, procedures, bathroom and other care routines, personal items, smoking policy, room service/diet, and visiting hours. Information on how to activate the Rapid Response Team has been discussed. Patient/Family are encouraged to report perceived risks to care and to ask questions if they do not understand what they are told or what they should do.
[2023-09-26] MEDS: LACTATED RINGERS 1,000 ML 100 ML IV CONT (18:43)
[2023-09-26] MEDS: LOPERAMIDE HCL 2 MG CAPSULE PO ×2 (18:43→21:51)
[2023-09-26] MEDS: OSELTAMIVIR PHOSPHATE 75 MG CAPSULE PO (20:31)
[2023-09-26] MEDS: ATORVASTATIN 10 MG TABLET PO (20:31)
[2023-09-27] MEDS: LEVOTHYROXINE SODIUM 75 MCG TABLET PO (05:34)
[2023-09-27 06:00] VITALS: BP 116/49; PULSE 94; RESP 16; TEMP 35.7; O2SAT 94
[2023-09-27 06:06] LABS: Hematocrit 38.8 % (37.0-47.0); Hemoglobin 12.1 g/dL (12.0-15.0); Mean Corpuscular HGB Conc 31.2 g/dl (32-36); Mean Corpuscular Hemoglobin 30.6 pg (26-34); Mean Corpuscular Volume 98.2 fl (80-100); Mean Platelet Volume 9.4 fl (7.4-10.4); Platelet Count Result 178 k/mm3 (150-375); Red Blood Count 3.95 M/mm3 (4.2-5.4); Red Cell Distribution Width 15.3 % (11.5-14.5); White Blood Count 6.4 K/mm3 (4.5-10.0)
[2023-09-27 06:21] LABS: Anion Gap 4 mmol/L (8-16); Blood Urea Nitrogen 8 mg/dL (7-17); Calcium 7.9 mg/dL (8.4-10.2); Carbon Dioxide 26 mmol/L (22-30); Chloride 105 mmol/L (98-107); Estimated CRCL calculation 65 ml/min; Estimated Glomerular Filt Rate > 60; Glucose 95 mg/dL (65-110); Potassium 3.5 mmol/L (3.4-5.0); Sodium 135 mmol/L (137-145)
[2023-09-27] MEDS: THERAPEUTIC MULTIVITAMINS/MINERALS TAB (*BKC) 1 TABLET PO (08:35)
[2023-09-27] MEDS: BENZONATATE 100 MG CAPSULE PO (08:35)
[2023-09-27] MEDS: GABAPENTIN 300 MG CAPSULE PO (08:35)
[2023-09-27] MEDS: ACETAMINOPHEN 325 MG TABLET 650 MG PO (08:35)
[2023-09-27] MEDS: OSELTAMIVIR PHOSPHATE 75 MG CAPSULE PO ×2 (08:35→20:23)
[2023-09-27] MEDS: OPTI-GEN TAB 1 TABLET PO (08:36)
[2023-09-27] MEDS: MELOXICAM 7.5 MG TABLET PO (08:36)
[2023-09-27] MEDS: FLUoxetine HCL 10 MG CAPSULE PO (08:36)
[2023-09-27] MEDS: PANTOPRAZOLE 40 MG TABLET PO (08:36)
[2023-09-27] MEDS: azaTHIOprine 25 MG TABLET PO (08:36)
--- NOTE | 2023-09-27 10:37 | PM.IMPN ---
Progress Note: A&P Assessment and Plan (1) Influenza: Code(s): J11.1 - Influenza due to unidentified influenza virus with other respiratory manifestations Status: Acute Assessment and Plan: - Symptom onset - 09/23/23 - tested positive for Flu A on 09/26/23 - complicating comorbidities - asthma, former smoker - CXR: mild atelectasis in the lower lung zones. - Tamiflu 75 mg BID x5 days first dose given in the ED - supportive care TYL prn for fever/pain zofran prn lozenge prn tessalon perles prn inhaler p.r.n. IV hydration - LR at 75 mL/hr 500ml once - monitor VS/O2 - monitor daily labs (2) AMS (altered mental status): Code(s): R41.82 - Altered mental status, unspecified Status: Acute Assessment and Plan: - Head CT: Normal aging brain. There is mild mucosal thickening in the paranasal sinuses. The mastoid air cells are normal. - UA: Dark yellow, 3+ ketones, 2+ blood, 6-10 rbc's. - Flu A+ - neurochecks Qshift - TSH with reflex pending - suspect alteration is viral encephalopathy Plan -continue supportive care due to alteration and inability to care for self. -advance diet as tolerated -stool culture pending needs to be collected Home Meds/Chronic Conditions -continue atorvastatin, imuran, calcium/vitamin-D, Prozac, gabapentin, levothyroxine, meloxicam, multivitamin, omeprazole. Diet: Heart healthy GI Prophylaxis: Not indicated DVT Prophylaxis: SCDs Lines: Peripheral Code Status: Full code Subjective Date/time seen: 09/27/23 10:37 Interval history: 73 y/o F presents here for evaluation of generalized weakness, intermittent dizziness, and increased somnolence with PMH asthma, GERD, scoliosis, hypothyroidism, former smoker, and ulcerative colitis. Patient presents here from home for evaluation of generalized weakness, intermittent dizziness, increased somnolence, chest congestion, and body aches.? Symptoms began on 09/23. Patient self-reports feeling more confused and described as forgetting words, situations, and general fogginess. Patient will start to describe things and will forget what she was saying midway through explanation. No dysarthria or expressive difficulties. Endorsing intermittent fever and chills. +cough that is producing yellow to green sputum. +mild shortness of breath. Dizziness is intermittent and occurs when patient changes positions. Patient is a former smoker and stopped in 2022. No recent sick contacts in the last 2 weeks. Initial VS at presentation: 99.2 F, HR 71, RR 18, 121/70, and 100% on RA. ED workup showed no leukocytosis, no anemia, creatinine 0.7, no significant electrolyte derangements, and UA not suggestive of UTI. Patient tested positive for Flu A. CXR showed mild atelectasis in the lower lung zones. Head CT showed normal aging brain. interval hx: 09/27/2023: pt seen this am, family (daughter) is by the bedside, pt denies any overnight events. She reports hx of extreme fatigue with mild confusion when her s/s fisrt started. She reprots she has since returned to baseline, yet continues with mild- moderate weakness. Pt denies any sob, chest pain, at this time. She reports a hx of loose stools, denies any bloody stools, reports low grade fever and chills at home. Plan collect stool culture, continue hydration, pt/ot for eval continue oseltamivir p.o. Review of Systems Review of Systems: All systems reviewed & are unremarkable except as noted in HPI and below Exam Narrative: APPEARANCE: Ill appearing HEAD: normocephalic, atraumatic. EYES: PERRLA/EOMI, conjunctivae clear. NOSE: Normal no drainage EARS:TMS clear with good light reflex. THROAT: Pharynx clear, no exudate. NECK: Supple. No adenopathy, no masses. RESPIRATORY: Airway patent, respirations nonlabored. Clear to auscultation bilaterally, no rales, rhonchi, wheezing. CARDIOVASCULAR: Regular rate and rhythm without murmurs rubs or gallops. ABDOMINAL: Soft, nontender, nondi
[2023-09-27 11:04] LABS: Alanine Aminotransferase 13 U/L (6-35); Albumin Level 3.4 g/dL (3.5-5.1); Alkaline Phosphatase 53 U/L (38-126); Anion Gap 2 mmol/L (8-16); Aspartate Amino Transferase 46 U/L (14-36); Bilirubin,Total 0.4 mg/dL (0.2-1.3); Blood Urea Nitrogen 9 mg/dL (7-17); Calcium 8.1 mg/dL (8.4-10.2); Carbon Dioxide 25 mmol/L (22-30); Chloride 106 mmol/L (98-107); Estimated CRCL calculation 65 ml/min; Estimated Glomerular Filt Rate > 60; Glucose 92 mg/dL (65-110); Potassium 3.6 mmol/L (3.4-5.0); Sodium 133 mmol/L (137-145)
[2023-09-27 11:18] LABS: Procalcitonin 0.1 ng/mL
[2023-09-27 14:00] VITALS: BP 130/66; PULSE 67; RESP 12; TEMP 36.6; O2SAT 95
[2023-09-27] MEDS: LACTATED RINGERS 500 ML 75 ML IV CONT (16:02)
[2023-09-27] MEDS: ALBUTEROL SULFATE (*SP) AEROSOL 1 PUFF INHALATION (16:36)
[2023-09-27] MEDS: ATORVASTATIN 10 MG TABLET PO (20:23)
[2023-09-27 21:41] VITALS: BP 127/64; PULSE 66; RESP 14; TEMP 37.4; O2SAT 98
[2023-09-28] MEDS: LEVOTHYROXINE SODIUM 75 MCG TABLET PO (05:47)
[2023-09-28 06:00] VITALS: BP 133/78; PULSE 67; RESP 16; TEMP 36.6; O2SAT 90
[2023-09-28 07:02] LABS: Basophils Percent Auto 0.7 % (0.2-1.2); Eosinophils Absolute Auto 0.1 K/mm3 (0-0.3); Eosinophils Percent Auto 1.2 % (0-4.4); Hematocrit 39.7 % (37.0-47.0); Hemoglobin 12.5 g/dL (12.0-15.0); Immature Granulocyte Absolute 0.01 K/mm3 (0.00-0.031); Immature Granulocyte Percent A 0.2 % (0-0.5); Lymphocytes Absolute Auto 1.02 K/mm3 (0.9-3.2); Lymphocytes Percent Auto 25.4 % (18.3-44.2); Mean Corpuscular HGB Conc 31.5 g/dl (32-36); Mean Corpuscular Hemoglobin 30.7 pg (26-34); Mean Corpuscular Volume 97.5 fl (80-100); Mean Platelet Volume 9.6 fl (7.4-10.4); Monocytes Absolute Auto 0.5 K/mm3 (0.1-0.6); Monocytes Percent Auto 11.7 % (2.6-8.5); Neutrophils Absolute Auto 2.4 K/mm3 (1.3-6.7); Neutrophils Percent Auto 60.8 % (45.5-73.1); Platelet Count Result 198 k/mm3 (150-375); Red Blood Count 4.07 M/mm3 (4.2-5.4)
[2023-09-28 07:14] LABS: Alanine Aminotransferase 13 U/L (6-35); Albumin Level 3.5 g/dL (3.5-5.1); Alkaline Phosphatase 51 U/L (38-126); Anion Gap 2 mmol/L (8-16); Aspartate Amino Transferase 30 U/L (14-36); Bilirubin,Total 0.5 mg/dL (0.2-1.3); Blood Urea Nitrogen 7 mg/dL (7-17); Calcium 8.4 mg/dL (8.4-10.2); Carbon Dioxide 31 mmol/L (22-30); Chloride 104 mmol/L (98-107); Estimated CRCL calculation 65 ml/min; Estimated Glomerular Filt Rate > 60; Glucose 93 mg/dL (65-110); Potassium 3.7 mmol/L (3.4-5.0); Sodium 137 mmol/L (137-145)
[2023-09-28] MEDS: MELOXICAM 7.5 MG TABLET PO (08:42)
[2023-09-28] MEDS: OSELTAMIVIR PHOSPHATE 75 MG CAPSULE PO (08:42)
[2023-09-28] MEDS: OPTI-GEN TAB 1 TABLET PO (08:42)
[2023-09-28] MEDS: PANTOPRAZOLE 40 MG TABLET PO (08:42)
[2023-09-28] MEDS: THERAPEUTIC MULTIVITAMINS/MINERALS TAB (*BKC) 1 TABLET PO (08:42)
[2023-09-28] MEDS: azaTHIOprine 25 MG TABLET PO (08:42)
[2023-09-28] MEDS: GABAPENTIN 300 MG CAPSULE PO (08:43)
[2023-09-28] MEDS: FLUoxetine HCL 10 MG CAPSULE PO (08:45)
--- NOTE | 2023-09-28 08:51 | PM.IMPN ---
Progress Note: A&P Assessment and Plan (1) Influenza: Code(s): J11.1 - Influenza due to unidentified influenza virus with other respiratory manifestations Status: Acute Assessment and Plan: - Symptom onset - 09/23/23 - tested positive for Flu A on 09/26/23 - complicating comorbidities - asthma, former smoker - CXR: mild atelectasis in the lower lung zones. - Tamiflu 75 mg BID x5 days first dose given in the ED - supportive care TYL prn for fever/pain zofran prn lozenge prn tessalon perles prn inhaler p.r.n. IV hydration - LR at 75 mL/hr 500ml once - monitor VS/O2 - monitor daily labs (2) AMS (altered mental status): Code(s): R41.82 - Altered mental status, unspecified Status: Acute Assessment and Plan: - Head CT: Normal aging brain. There is mild mucosal thickening in the paranasal sinuses. The mastoid air cells are normal. - UA: Dark yellow, 3+ ketones, 2+ blood, 6-10 rbc's. - Flu A+ - neurochecks Qshift - TSH with reflex pending - suspect alteration is viral encephalopathy Plan -continue supportive care due to alteration and inability to care for self. -advance diet as tolerated -stool culture pending needs to be collected Home Meds/Chronic Conditions -continue atorvastatin, imuran, calcium/vitamin-D, Prozac, gabapentin, levothyroxine, meloxicam, multivitamin, omeprazole. Diet: Heart healthy GI Prophylaxis: Not indicated DVT Prophylaxis: SCDs Lines: Peripheral Code Status: Full code Subjective Date/time seen: 09/28/23 08:51 Interval history: 73 y/o F presents here for evaluation of generalized weakness, intermittent dizziness, and increased somnolence with PMH asthma, GERD, scoliosis, hypothyroidism, former smoker, and ulcerative colitis. Patient presents here from home for evaluation of generalized weakness, intermittent dizziness, increased somnolence, chest congestion, and body aches.? Symptoms began on 09/23. Patient self-reports feeling more confused and described as forgetting words, situations, and general fogginess. Patient will start to describe things and will forget what she was saying midway through explanation. No dysarthria or expressive difficulties. Endorsing intermittent fever and chills. +cough that is producing yellow to green sputum. +mild shortness of breath. Dizziness is intermittent and occurs when patient changes positions. Patient is a former smoker and stopped in 2022. No recent sick contacts in the last 2 weeks. Initial VS at presentation: 99.2 F, HR 71, RR 18, 121/70, and 100% on RA. ED workup showed no leukocytosis, no anemia, creatinine 0.7, no significant electrolyte derangements, and UA not suggestive of UTI. Patient tested positive for Flu A. CXR showed mild atelectasis in the lower lung zones. Head CT showed normal aging brain. interval hx: 09/27/2023: pt seen this am, family (daughter) is by the bedside, pt denies any overnight events. She reports hx of extreme fatigue with mild confusion when her s/s fisrt started. She reprots she has since returned to baseline, yet continues with mild- moderate weakness. Pt denies any sob, chest pain, at this time. She reports a hx of loose stools, denies any bloody stools, reports low grade fever and chills at home. Plan collect stool culture, continue hydration, pt/ot for eval continue oseltamivir p.o. 09/28/23: Review of Systems Review of Systems: All systems reviewed & are unremarkable except as noted in HPI and below Objective Data Vital Signs Vital Signs: Vital Signs - 24 hr 09/27/23 11:00 09/27/23 14:00 09/27/23 21:41 Temperature 97.8 F 99.4 F Pulse Rate 67 66 Respiratory Rate 12 14 Blood Pressure 130/66 127/64 Pulse Oximetry 95 98 Oxygen Delivery Room Air 09/28/23 06:00 Temperature 98 F Pulse Rate 67 Respiratory Rate 16 Blood Pressure 133/78 Pulse Oximetry 90 Oxygen Delivery Intake/Output Intake/Output: Intake & Output 09/25/23
--- NOTE | 2023-09-28 10:39 | PM.DS ---
DS: Admitting Diagnosis Discharge Date 09/28/23 Admitting Diagnosis Influenza A AMS DS: Discharge Diagnosis Discharge Diagnosis (1) Influenza: Code(s): J11.1 - Influenza due to unidentified influenza virus with other respiratory manifestations Status: Acute (2) AMS (altered mental status): Code(s): R41.82 - Altered mental status, unspecified Status: Acute DS: Summary Hospital Course Reason for hospitalization: Influenza A AMS Hospital Course: This is a 73-year-old female who presented on 09/26/2023 with generalized weakness, dizziness, somnolence. Head CT was negative for any acute intracranial a process. Chest x-ray shows mild atelectasis of the lower lung zones. Initial labs were essentially unremarkable. Procalcitonin 0.1. UA showed 3+ ketones, 2+ urine blood, 6-10 urine RBC. Respiratory panel was done and showed influenza a. She was started on Tamiflu and IV fluids. Patient was altered on presentation. She is currently alert oriented x3, lungs are clear and diminished in the bases, she is currently on room air, no acute respiratory distress or use of accessory muscles seen. She denies any fever, chills, nausea, vomiting, diarrhea, abdominal pain, chest pain, shortness a breath. Labs today are essentially unremarkable. She is stable for discharge at this time. She will go home with Tamiflu and will need to finish the full course and follow-up with primary care physician in 1 week. Final diagnosis: Influenza A, altered mental status Status at Discharge Cognitive/behavioral status at discharge: Alert and oriented x3 Functional status at discharge: independent ambulation Overall status at discharge: patient is progressing back to baseline Time Spent with Patient Time attestation: Total time spent providing and/or coordinating discharge services: Time spent: Greater than 30 minutes Exam Narrative: General: In no acute distress, well nourished Head: atraumatic, no encephalopathy Eyes: EOMI, PERRLA, sclera clear ENT: moist mucous membranes, nasal passages clear Neck: supple, no JVD, no adenopathy, trachea midline Cardiac: Normal S1 and S2. RRR. No murmur, gallops or friction rubs, peripheral pulses intact. Respiratory: Lungs clear, cough noted, no adventitious lung sounds, currently on room air Gastrointestinal: soft, non-distended, non-tender, normoactive bowel sounds. : voiding without difficulty. Extremities: moves all extremities well, no edema, good ROM, strength 5/5 Skin: clean, dry, intact. No wounds or lesions. Neuro: Alert and oriented x4, cranial nerves intact, no neuro deficits. Psych: normal mood, normal affect, interactive DS: Data Data Completed and Pending Completed studies during hospitalization: Head CT Chest x-ray Pending studies at discharge: None Labs on day of discharge: Labs from last 24 hours 09/28/23 09/27/23 05:49 05:32 WBC 4.0 L RBC 4.07 L Hgb 12.5 Hct 39.7 MCV 97.5 MCH 30.7 MCHC 31.5 L RDW 15.0 H Plt Count 198 MPV 9.6 Immature Gran % (Auto) 0.2 Neut % (Auto) 60.8 Lymph % (Auto) 25.4 Payne % (Auto) 11.7 H Eos % (Auto) 1.2 Baso % (Auto) 0.7 Lymph # (Auto) 1.02 Payne # (Auto) 0.5 Eos # (Auto) 0.1 Baso # (Auto) 0.0 Abs Immat Gran (auto) 0.01 Absolute Neuts (auto) 2.4 Absolute Nucleated RBC 0.0 Nucleated RBC % 0.0 Sodium 137 133 L Potassium 3.7 3.6 Chloride 104 106 Carbon Dioxide 31 H 25 Anion Gap 2 L 2 L BUN 7 9 Creatinine 0.60 L 0.60 L Estim Creat Clear Calc 65 65 Estimated GFR > 60 > 60 Glucose 93 92 Calcium 8.4 8.1 L Total Bilirubin 0.5 0.4 AST 30 46 H ALT 13 13 Alkaline Phosphatase 51 53 Total Protein 7.0 6.0 L Albumin 3.5 3.4 L Procalcitonin 0.1 TSH (Reflex) 2.780 Procedures/Treatments: None Discharge Plan Discharge Attending physician on discharge: Pro [place] Discharging Clinician: Lia Carpenter
== END 2023-09-28 11:13 | disposition home or self-care (01) ==
LOC: ANHED 14:02 → ANH3MEDSUR 15:17
PROVIDERS: Nurse Practitioner; Student in an Organized Health Care Education/Training Program; Admitting Provider Family Medicine; Emergency Provider Emergency Medicine; PCP Family Medicine; Visit Provider Internal Medicine
DX: J11.1 Influenza due to unidentified influenza virus with other respiratory manifestations (principal); R41.82 Altered mental status, unspecified; K21.9 Gastro-esophageal reflux disease without esophagitis; E03.9 Hypothyroidism, unspecified; J45.909 Unspecified asthma, uncomplicated; J98.11 Atelectasis; M41.9 Scoliosis, unspecified; Z20.822 Contact with and (suspected) exposure to COVID-19; K50.90 Crohn's disease, unspecified, without complications; F10.90 Alcohol use, unspecified, uncomplicated; Z87.891 Personal history of nicotine dependence; Z79.891 Long term (current) use of opiate analgesic; Z79.51 Long term (current) use of inhaled steroids; Z79.899 Other long term (current) drug therapy
CPT/HCPCS: 36415; 70450; 71045; 80048; 80053; 81001; 84145; 84443; 85025; 85027; 87637; 93005; 94640; 96361; 96374; 97161; 99285; A9270; G0378; J2405; J7030; J7120

== ENCOUNTER 2024-01-22 12:17 | Outpatient (CLI) | payer MEDICARE, SELFPAY ==
--- NOTE | ~2024-01-22 | MM_ITS ---
EXAMINATION: MM screening kalen BI w asuncion HISTORY: Screening mammogram TECHNIQUE: Craniocaudal and mediolateral oblique 3-D tomosynthesis images were obtained and synthetic 2-D images were generated. CAD analysis was submitted and interpreted. COMPARISON: 12/24/2022, 10/29/2021, 08/14/2020 BREAST PARENCHYMAL COMPOSITION:Not Dense. There are scattered areas of fibroglandular density. FINDINGS: Low-density benign intramammary lymph nodes are present bilaterally. No suspicious mass, ca lcification, or architectural distortion are identified in either breast to suggest malignancy. There has been no suspicious interval change. IMPRESSION: No mammographic evidence of malignancy. Recommend routine screening mammography in one year. BI-RADS Category 2: Benign finding(s). Reviewed, dictated and finalized at [facility].
== END 2024-01-22 12:18 ==
PROVIDERS: PCP Family Medicine; Visit Provider Family Medicine
DX: Z12.31 Encounter for screening mammogram for malignant neoplasm of breast (principal)
CPT/HCPCS: 77063; 77067

== ENCOUNTER 2025-02-24 10:05 | Outpatient (CLI) | payer MEDICARE, SELFPAY ==
--- NOTE | ~2025-02-24 | MM_ITS ---
EXAMINATION: MM screening kalen BI w asuncion HISTORY: Screening TECHNIQUE: Craniocaudal and mediolateral oblique 3-D tomosynthesis images were obtained and synthetic 2-D images were generated. CAD analysis was submitted and interpreted. COMPARISON: Comparison to multiple prior studies sequentially, with oldest reviewed study dated 11/2021. BREAST PARENCHYMAL COMPOSITION: Not dense: There are scattered areas of fibroglandular density. FINDINGS: Focal masses in the upper and central aspect of the right breast are stable allowing for di fferences of technique compared with prior studies. These were previously characterized as benign on ultrasound dated 12/24/2022 and 05/28/2022 There is no evidence of suspicious mass, calcification, or architectural distortion to suggest malignancy in either breast. There has been no suspicious interva l change. IMPRESSION: 1. No mammographic evidence of malignancy. 2. Recommend routine screening mammography in one year. BI-RADS Category 2: Benign finding(s). Reviewed, dictated and finalized at location B.
== END 2025-02-24 10:06 | disposition home or self-care (01) ==
LOC: MICIMG 10:06
PROVIDERS: PCP Family Medicine; Visit Provider Family Medicine
DX: Z12.31 Encounter for screening mammogram for malignant neoplasm of breast (principal)
CPT/HCPCS: 77063; 77067

== ENCOUNTER 2025-02-24 12:42 | Outpatient (CLI) | payer MEDICARE, SELFPAY ==
--- NOTE | ~2025-02-24 | DEXA_ITS ---
Bone Density Report Name: CEDRICK CROUCH Age: 74 Sex: Female Ethnicity: White Date of : 1950 Indication: postmenopausal; screening for osteoporosis; parental hip fracture; height loss; inflammatory bowel disease; Referring Provider: ALLI ANTONY Study: Bone densitometry was performed. Exam Date: February 24, 2025 Accession number: [id number] Bone Density: Region BMD T-score Z-score Classification AP Spine(L1-L4) 1.014 -0.3 2.1 Normal Femoral Neck (Left) 0.614 -2.1 0.0 Osteopenia Total Hip (Left) 0.723 -1.8 0.0 Osteopenia Femoral Neck (Right) 0.620 -2.1 0.0 Osteopenia Total Hip (Right) 0.779 -1.3 0.4 Osteopenia Total Hip Mean 0.751 -1.6 0.2 Osteopenia World Health Organization criteria for BMD impression classify patients as: Normal (T-score at or above -1.0), Osteopenia (T-score between -1.0 and -2.5), or Osteoporosis (T-score at or below -2.5). 10-year Fracture Risk(1): Major Osteoporotic Fracture 23% Hip Fracture 13% Reported Risk Factors: [place] (), Neck BMD=0.614, BMI=28.6, parental fracture (1) FRAX(R) Version 3.08. Fracture probability calculated for an untreated patient. Fracture probability may be lower if the patient has received treatment. Clinical Information Provided by Patient: Parent has had a hip fracture Has used the following medications: Calcium Has the following medical conditions: Inflammatory bowel diseases Patient maximum height was 64 Menopause Age: 48 No regular weight bearing exercise Drinks caffeinated beverages Onset of menses at age 13 Number of children 2 Impression: The patient has low bone mass, based on the Left Femoral Neck T-score. The patient has an estimated ten-year risk of hip fracture of 13% and an estimated ten-year risk of major fracture of 23%, based on the WHO FRAX algorithm. The patient has risk factors, including: parental hip fracture. Discussion: BONE DENSITY IS LOW AT ONE OR MORE SKELETAL SITES. THE PATIENT'S BMD AND CLINICAL RISK FACTORS CONTRIBUTE TO THIS PATIENT'S HIGH RISK OF FRACTURE. This patient's lowest T-score is low at one or more skeletal sites. It meets the World Health Organization's (WHO) criteria for ?low bone mass? (T-score between -1.0 and -2.5). The patient's 10-year risk of hip fracture and 10 year risk of a major osteoporotic fracture as calculated by FRAX exceeds the threshold where pharmacological therapy is recommended by the National Osteoporosis Foundation (NOF). However, all treatment decisions require clinical judgment and consideration of individual patient factors, including patient preferences, comorbidities, previous drug use, risk factors not captured in the FRAX model (e.g., frailty, falls, vitamin D deficiency, increased bone turnover, interval significant decline in bone density) and possible under or overestimation of fracture risk by FRAX. The patient should follow a healthful lifestyle (good nutrition with adequate calcium and vitamin D, and appropriate weight-bearing exercise). Follow-Up: Consider a repeat BMD and Vertebral Fracture Assessment (VFA) exam in 2 years or sooner if medically necessary, to reassess this patient's status. Reported by: CHRIS on 02/24/2025 1:36:00 PM. Reviewed, dictated and finalized at location A.
--- OUTSIDE RECORDS SUMMARY | 2025-02-24 12:49 | XMS_ITS | Clinical Summary ---
Author Organization [facility] Address [address] [place] [id number] Care Team Providers Care Senior Java Programmer Name Role Phone Pascale Peterson MD Primary Care Provider [phone] Social History Tobacco Use Types Packs/Day Years Used Date Smoking Tobacco: Never Assessed Comments Unknown Sex and Gender Information Value Date Recorded Sex Assigned at Not on file Legal Sex Female 5:11 PM CDT Gender Identity Not on file Sexual Orientation Not on file Plan of Treatment Health Maintenance Due Date Last Done Comments Colorectal Cancer Screening Colonoscopy (10 Years) 1950 Hepatitis C 1968 DTaP, Tdap and Td Vaccines ( 1 - Tdap) 1969 Mammogram Screening 1990 Pneumococcal Vaccine: 50+ Ye ars (1 of 1 - PCV) 2000 Zoster Vaccines (1 of 2) 2000 Dexa Scan (General) 2015 COVID-19 Vaccine ( - 2023-2 5 season) 2024 RSV Immunization or 60+ Years (1 - 1-dose 75+ series) 2025 Meningococcal B Vaccine Aged Out No l onger eligible based on patient's age to complete this topic Meningococcal Vaccine Aged Out No jean-claude sacha eligible based on patient's age to complete this topic RSV Immunizations Under 20 Months Aged Out No longer eligible based on patient's age to complete this topic Care Teams Senior Java Programmer Relationship Specialty Start Date End Date Pascale Peterson MD PCP - General 07/18/15
--- OUTSIDE RECORDS SUMMARY | 2025-02-24 12:49 | XMS_ITS | Clinical Summary ---
Author Organization [facility] Address [address] [place] [address] Care Team Providers Care Evp Business Development Name Role Phone Darien Peterson MD Primary Care Provider [phone] Source Comments [facility],non-owned Affiliates and Associated Physician Practices is amultiple site organization consisting of ambulatory clinics and hospital sitesin [place], [place], [place] and [place]. This disclosure is being madepursuant to the Care Everywhere program and may not contain all information available regarding this patient. 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 Gender Identity Not on file Sexual Orientation Not on file Plan of Treatment Health Maintenance Due Date Last Done Comments BONE DENSITY TESTING 1950 COLOGUARD (AGES 45-75) - COL ON CA SCREENING 1950 COLON MONITORING 1950 COLONOSCOPY - COLON CA SCREENING 1950 CT COLONOGRAPHY - COLON CA SCREENING 1950 Colorectal Cancer Screening 1950 FIT - COLON CA SCREENING 1950 FLEX SIG - COLON CA SCREENING 1950 LIPID TESTING 1950 MAMMOGRAM 1950 HEPATITIS C SCREENING 03/30/1968 DTAP/TDAP/TD VACCINES (1 - Tdap) 1969 PNEUMOCOCCAL VACCINE 50+ (1 of 1 - PCV) 2000 ZOSTER VACCINE (1 of 2) 2000 COVID-19 VACCINE (1 - 2023-2 5 season) 2024 DEPRESSION SCREENING 07/27/2024 MEDICARE AWV CALENDAR YEAR 2024 INFLUENZA VACCINE (#1) 2025 Respiratory Syncytial Virus (RSV) Vaccine Pt: or over 60 yrs (1 - 1-dose 75+ series) 2025 HEPATITIS B VACCINE Aged Out No longe r eligible based on patient's age to complete this topic HIB VACCINE Aged Out No longer eligi ble based on patient's age to complete this topic HPV VACCINE Aged Out No longer eligi ble based on patient's age to complete this topic MENINGOCOCCAL (Group B) VACC INE SHARED DECISION-MAKING Aged Out No longer eligibl e based on patient's age to complete this topic MENINGOCOCCAL GROUPS A/C/Y/W VACCINE Aged Out No longer eligible b ased on patient's age to complete this topic Insurance [facility] MANAGED MEDICARE ADV Care Teams Evp Business Development Relationship Specialty Start Date End Date Darien Peterson MD [address] [place] [id number] PCP - General 05/08/20
== END 2025-02-24 12:43 | disposition home or self-care (01) ==
LOC: ANHIMG 12:47
PROVIDERS: PCP Family Medicine; Visit Provider Student in an Organized Health Care Education/Training Program
DX: M85.89 Other specified disorders of bone density and structure, multiple sites (principal); N95.1 Menopausal and female climacteric states; M81.0 Age-related osteoporosis without current pathological fracture
CPT/HCPCS: 77080